=== PATIENT | male | born 1990 | race Caucasian/White ===

== ENCOUNTER 2019-02-25 21:14 | Emergency (ER) | payer OTHER ==
[~2019-02-25] VITALS: Ht 177.8 cm; Wt 103.0 kg
[2019-02-25 21:19] VITALS: Ht 177.8 cm; Wt 103.0 kg
[2019-02-25 22:19] VITALS: BP 137/73
== END 2019-02-25 22:19 | disposition home or self-care (01) ==
LOC: ED 21:14
DX: S61.210A Laceration without foreign body of right index finger without damage to nail, initial encounter (principal); W54.0XXA Bitten by dog, initial encounter; Y93.89 Activity, other specified; Y92.89 Other specified places as the place of occurrence of the external cause; Y99.8 Other external cause status